=== PATIENT | female | born 1980 ===

== ENCOUNTER 2020-12-23 09:12 | Outpatient (REF) | payer OTHER, SELFPAY ==
[2020-12-23 10:10] LABS: MANUAL DIFF FLAG NO
[2020-12-23 10:26] LABS: Basophils Percent Auto 0.5 % (0-2); Eosinophils Absolute Auto 0.1 X10*3/uL (0.0-0.4); Hematocrit 37.5 % (37-47); Hemoglobin 12.3 g/dl (12.0-16.0); Imm Gran Abs Auto 0.02 X10*3/uL (0.00-0.03); Imm Gran Pct Auto 0.3 % (0.0-0.4); Lymphocytes Absolute Auto 1.8 X10*3/uL (1.2-4.9); Lymphocytes Percent Auto 29.1 % (20-40); Mean Corpuscular HGB Conc 32.8 g/dl (31.0-35.0); Mean Corpuscular Hemoglobin 28.7 pg (27.0-33.0); Mean Corpuscular Volume 87.4 fL (80-98); Mean Platelet Volume 10.8 fL (9.4-12.3); Monocytes Absolute Auto 0.5 X10*3/uL (0.1-1.2); Monocytes Percent Auto 8.2 % (2-11); Neutrophils Absolute Auto 3.7 X10*3/uL (2.0-8.3); Neutrophils Percent Auto 60.9 % (45-73); Platelet Count 252 X10*3/uL (160-400); Red Blood Count 4.29 X10*6/uL (4.20-5.50)
[2020-12-23 10:28] LABS: Prothrombin Time 11.7 SEC (10.8-13.0)
[2020-12-23 11:05] LABS: Alanine Aminotransferase 17 U/L (0-31); Albumin Level 4.1 g/dL (3.5-5.0); Alkaline Phosphatase 75 U/L (39-117); Anion Gap 16 (12-20); Aspartate Amino Transferase 18 U/L (5-31); Bilirubin Total 0.4 mg/dL (0.0-1.0); Blood Urea Nitrogen 19 mg/dL (9-16); Calcium 8.6 mg/dL (8.4-10.2); Carbon Dioxide 21 mmol/L (22-29); Chloride 108 mmol/L (96-108); Estimated Glomerular Filt Rate > 60; Glucose Random 87 mg/dL (60-115); Sodium 141 mmol/L (135-145)
[2020-12-23 11:31] LABS: Gamma Glutamyl Transpeptidase 63 U/L (7-33)
== END 2020-12-23 09:13 | disposition home or self-care (01) ==
LOC: HO.LAB 09:12
PROVIDERS: PCP Family Medicine; Visit Provider Internal Medicine Gastroenterology
DX: K76.0 Fatty (change of) liver, not elsewhere classified (principal)
CPT/HCPCS: 36415; 80053; 82977; 85025; 85610

== ENCOUNTER → 2021-01-29 10:04 | Outpatient (BNVA) | payer OTHER, SELFPAY | PROVIDERS: PCP Family Medicine; Referring Provider Family Medicine; Visit Provider Physician Assistant ==

== ENCOUNTER 2021-02-02 15:20 | Emergency (ER) | payer OTHER, SELFPAY ==
--- NOTE | 2021-02-02 | ECG_ITS ---
Test Reason : CHEST PAIN Blood Pressure : / mmHG Vent. Rate : 097 BPM Atrial Rate : 097 BPM P-R Int : 154 ms QRS Dur : 108 ms QT Int : 366 ms P-R-T Axes : 039 -08 023 degrees QTc Int : 464 ms Normal sinus rhythm Incomplete right bundle branch block Borderline ECG No previous ECGs available Referred By: Generic ED Physician Electronically Signed By:Herbert Lew
[2021-02-02 15:28] VITALS: BP 144/78; PULSE 106; RESP 18; TEMP 37; O2SAT 97; BMI 42.0
--- NOTE | 2021-02-02 16:50 | ED_ITS ---
HPI - GI Bleed General Chief complaint: GI Bleed Stated complaint: wound left buttocks Time Seen by Provider: 02/02/21 17:50 Source: patient Mode of arrival: ambulatory Limitations: no limitations History of Present Illness HPI Narrative: 40-year-old female presents with wound next to her anus and states that it is bleeding. This wound started off as a hemorrhoid and recently opened up on Friday. She does some chest pressure and palpitations because of anxiety. She does not report fevers, chills, nausea, vomiting, diarrhea, constipation, abdominal pain, abdominal distention, edema, or any other concerning symptoms. Onset (ago): day(s) Pain Consistency: constant Severity: mild Relieving factors: none Exacerbating factors: bowel movement Context: hemorrhoids Associated symptoms: denies other symptoms Treatments Prior to Arrival: OTC meds and topical ointment Related Data Home Medications Medication Instructions Recorded Confirmed Lactobacillus combo no.23 14 cell PO 01/29/21 billion cell capsule albuterol sulfate 90 mcg/actuation 0 mcg INHALATION 01/29/21 aerosol inhaler omeprazole 20 mg capsule,delayed 20 mg PO DAILY 01/29/21 release Previous Rx's Medication Instructions Recorded docusate sodium 100 mg capsule 200 mg PO BEDTIME #60 cap 01/29/21 hydrocortisone 2.5 % topical cream 1 appl TN BID PRN #30 g 01/29/21 with perineal applicator methylcellulose (laxative) 500 mg 500 mg PO BID #60 tab 01/29/21 tablet polyethylene glycol 3350 17 gram 17 g PO DAILY #30 ea 01/29/21 oral powder packet amoxicillin-pot clavulanate 1 tab PO Q12H 7 Days #14 tab 02/02/21 [Augmentin] Allergies Allergy/AdvReac Type Severity Reaction Status Date / Time No Known Allergies Allergy Verified 01/29/21 10:12 [No Known Allergies*] Review of Systems Review of Systems: Constitutional: No Fever, No Chills ENT/Mouth: No Ear Pain, No Hoarseness, No sore throat Eyes: No Eye Pain, No Swelling, No Redness, No Foreign Body Cardiovascular: No Chest Pain, No SOB Respiratory: No Cough, No Dyspnea Gastrointestinal: Positive rectal pain, positive rectal wound, No Nausea, No Vomiting, No Diarrhea, No abdominal Pain Genitourinary: No Dysuria, No Hematuria Musculoskeletal: No joint pain, No Myalgias, No Joint Swelling Skin: No Skin lacerations, No rash Neuro: No Weakness, No Numbness, No Paresthesias, No Loss of Consciousness, No Dizziness, No Headache Psych: No Anxiety/Panic, No Depression Heme/Lymph: no easy bruising, no Lymphadenopathy Endocrine: No Polyuria, No Polydipsia Yes all other systems are reviewed and are negative [facility] Past Medical History Attestation statement: The following information was validated with the patient. 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 Oriented X3. No acute distress. Eyes: Pupils equal, round and reactive to light. ENT: Pharynx normal. Neck: Normal inspection. Neck supple. CVS: Normal heart rate and rhythm. Pulses normal. Respiratory: No respiratory distress. Breath sounds normal. Abdomen: Soft and nontender. Skin: Skin warm and dry. Normal skin color. Normal skin turgor. Open wound of the 9 o'clock position of anus. Extremities: No lower extremity edema. Neuro: No motor deficit. No sensory deficit. Course Course Course Narrative: 40-year-old female presents with wound to the 9 o'clock position of the anus. States that it started off as a hemorrhoid then opened up on Friday. I did discuss this case with Dr. Maldonado, Gastroenterology, patient does not have a history of Crohn's disease and is not actively bleeding at this time. Plan is to refer to surgery. Discussion with Dr. Cosby, plan is for patient to call on Friday and follow up in the office as an outpatient. Will give Augmentin for prophylaxis. She did have a full workup with normal lab at a prior facility earlier today and was referred to emergency department for wound evaluation. At the end of the exam and upon discharge instructions, patient stated that she did have some abnormal vaginal bleeding. She stated that this is her 2nd menstrual cycle less than 1 month. Patient was advised to follow-up with obstetrics and gynecology professor. Patient verbalized understanding of and agrees to plan of care discharge home. MDM - GI Bleed MDM Narrative Medical decision making narrative: Fissure, fistula Differential Diagnosis Differential diagnosis: Likely hemorrhoids ECG Data Attestation: I personally reviewed and interpreted this ECG as follows: ECG interpretation date: 02/02/21 ECG interpretation time: 16:46 Prior ECG tracings: not available for review Interpretation: Vent. rate 97 BPM TN interval 154 ms QRS duration 108 ms QT/QTc 366/464 ms P-R-T axes 39 -8 23 Normal sinus rhythm Incomplete right bundle branch block Borderline ECG No previous ECGs available Discharge Plan Discharge Clinical Impression: Rectal fistula, Hemorrhoids Patient Disposition: Home, Self-Care Instructions: Anal Fissure (ED), Anorectal Abscess and Anal Fistula (ED) Additional Instructions: You were evaluated for a wound at the anus. This looks to be a rectal fistula. You must follow-up with surgery. Please call Dr. Cosby on Friday. He is expecting your call. Please take Augmentin twice a day for the next 7 days. For abnormal vaginal bleeding to follow-up with obstetrics and gynecology professor. Thank you for choosing this emergency department for evaluation. Please follow-up with primary care physician as needed. Return to the emergency department for any new, concerning, or worsening symptoms. Prescriptions: New amoxicillin-pot clavulanate [Augmentin] 875-125 mg tablet 1 tab PO Q12H 7 Days Qty: 14 RF: 0 No Action albuterol sulfate 90 mcg/actuation HFA aerosol inhaler 0 mcg inhalation RF: 0 omeprazole 20 mg capsule,delayed release(DR/EC) 20 mg PO DAILY RF: 0 Ronnie Probiotic 14 billion cell capsule PO RF: 0 Citrucel 500 mg tablet 500 mg PO BID Qty: 60 RF: 5 docusate sodium [Colace] 100 mg capsule 200 mg PO BEDTIME Qty: 60 RF: 5 polyethylene glycol 3350 [Miralax] 17 gram powder in packet 17 g PO DAILY Qty: 30 RF: 5 hydrocortisone [Proctozone-HC] 2.5 % cream with perineal applicator 1 appl TN BID PRN (Reason: hemorrhoids) Qty: 30 RF: 3 Referrals: Stefano Cosby MD [Physician] - 2 days (Please call on Friday for an appointment for rectal fistula) Stand Alone Forms: Work/School Release Interventions: ED Discharge Assessment Last Done: 02/02/21 18:04 Discharge Date/Time: 02/02/21 18:05
[2021-02-02 17:58] VITALS: BP 124/68; PULSE 100; RESP 16; TEMP 36.9; O2SAT 97
== END 2021-02-02 18:05 | disposition home or self-care (01) ==
PROVIDERS: Emergency Provider Internal Medicine; PCP Family Medicine
DX: K60.4 Rectal fistula (principal); K64.9 Unspecified hemorrhoids
CPT/HCPCS: 93005; 99283

== ENCOUNTER → 2021-02-15 09:41 | Outpatient (BNVA) | payer OTHER, SELFPAY | PROVIDERS: PCP Family Medicine; Referring Provider Family Medicine; Visit Provider Surgery | DX: K64.9 Unspecified hemorrhoids (principal) | CPT/HCPCS: 46600 ==

== ENCOUNTER 2021-03-05 08:51 | Outpatient (REF) | payer OTHER, SELFPAY ==
--- NOTE | ~2021-03-05 | US_ITS ---
EXAMINATION: US COMPLETE ABDOMEN WITH LIVER ELASTOGRAPHY CLINICAL INFORMATION: K76.0 - Fatty (change of) liver, not elsewhere classified. Elevated liver function tests, clinical history prior exam. COMPARISON: CT abdomen and pelvis noncontrast 11/08/2019, ultrasound right upper quadrant abdomen 11/08/2019, ultrasound abdomen 10/31/2018 TECHNIQUE: Real-time imaging of the abdominal viscera. Noninvasive ultrasound liver fibrosis assessment is performed using [place] ElastPQ point quantification shear wave elastography (pSWE) with a C5-2 MHz transducer. Multiple elastography samples are obtained. FINDINGS: PANCREAS: The visualized pancreas is normal in size and contour and echogenicity. There is no ductal dilatation or retroperitoneal effusion. The distal body and tail are obscured by bowel gas and not imaged. The body and tail are unremarkable on recent noncontrast CT abdomen. ABDOMINAL AORTA: The proximal, middle, and distal aortic segments are normal in caliber. INFERIOR VENA CAVA: Visualized portions are normal. LIVER: The liver is normal in size and smooth in contour. There is mild increased hepatic parenchymal echogenicity suggesting mild hepatic steatosis. No focal hepatic parenchymal lesion or intrahepatic ductal dilatation. The right lobe measures 14.0 cm in length. The left lobe measures 13.9 cm in length. Portal flow is towards the liver (hepatopetal). Shear wave liver elastography median stiffness is 1.93 m/s (reference: normal median stiffness is 1.3 m/s or less). IQR/median stiffness to assess sampling precision is 0.16 (reference: good quality data set is IQR/median stiffness of 0.15 or less). GALLBLADDER: Normal. The gallbladder is physiologically distended without evidence of stones, sludge, polyps, wall thickening or pericholecystic fluid. COMMON BILE DUCT: Normal in caliber measuring 0.3 cm in diameter. RIGHT KIDNEY: Normal. No hydronephrosis. No renal calculi or focal parenchymal lesions. The kidney measures 11.4 cm in maximum dimension. LEFT KIDNEY: Normal. No hydronephrosis. No renal calculi or focal parenchymal lesions. The kidney measures 10.7 cm in maximum dimension. SPLEEN: Normal. The spleen measures 9.7 cm in maximum dimension. FREE FLUID: None. US/US abdomen comp w elastography IMPRESSION: 1. Liver normal in size and smooth in contour with mild increased parenchymal echogenicity suggesting mild hepatic steatosis. No focal parenchymal lesion. 2. Liver elastography: Measurements are suggestive of compensated advanced chronic liver disease but need further test for confirmation. 3. No cholelithiasis or ductal dilatation. REFERENCE: Society of Radiologists in Ultrasound Liver Stiffness Thresholds (2020): LIVER STIFFNESS THRESHOLDS: *Liver Stiffness equal or less than 1.3 m/s: High probability of being normal. *Liver Stiffness less than 1.7 m/s: In the absence of other known clinical signs, rules out compensated advanced chronic liver disease. *Liver Stiffness 1.7-2.1 m/s: Suggestive of compensated advanced chronic liver disease but need further test for confirmation. *Liver Stiffness over 2.1 m/s: Rules in compensated advanced chronic liver disease. *Liver Stiffness over 2.4 m/s: Suggestive of clinically significant portal hypertension. QUALITY OF DATA SET: *IQR/Median value equal or less than 0.15 implies a quality data set. *IQR/Median value over 0.15 implies a poor quality data set. SIGNIFICANT CHANGE FROM PRIOR EXAM: Significant change if liver stiffness measurement is 10% or greater from prior exam. OTHER CONSIDERATIONS: The stage of liver fibrosis may be overestimated in the setting of acute hepatitis, liver inflammation, elevated liver function tests, hepatic vascular congestion, obstructive cholestasis, non-fasting state, and infiltrative diseases such as amyloidosis and lymphoma. In some patients with NAFLD, the liver stiffness thresholds for compensated advanced chronic liver disease may be lower. In causes other than viral hepatitis and NAFLD, liver stiffness thresholds are not well established.
== END 2021-03-05 08:52 | disposition home or self-care (01) ==
LOC: HO.US 08:51
PROVIDERS: PCP Family Medicine; Visit Provider Physician Assistant
DX: K76.0 Fatty (change of) liver, not elsewhere classified (principal)
CPT/HCPCS: 76705; 76981

== ENCOUNTER 2021-04-09 09:56 | Outpatient (REF) | payer OTHER, SELFPAY ==
[2021-04-09 12:36] LABS: Erythrocyte Sedimentation Rate 5 MM/HR (0-20)
[2021-04-09 14:10] LABS: C Reactive Protein 0.07 mg/dL (< or = 0.50); Cholesterol 337 mg/dL; HDL Cholesterol 54 mg/dL; Lipase 24 U/L (8-78); Triglycerides 1076 mg/dL
[2021-04-09 14:34] LABS: Thyroid Stimulating Hormone 1.26 uIU/mL (0.32-4.0)
[2021-04-09 15:27] LABS: Leukocytes Stool Qualitative NEGATIVE (NEGATIVE)
[2021-04-12 12:01] LABS: Endomysial IgA Antibody Negative (Negative)
[2021-04-12 20:36] LABS: Transglutaminase IgA <1.0 U/mL
[2021-04-13 02:17] LABS: Calprotectin, Fecal 59 mcg/g
[2021-04-16 22:40] LABS: Pancreatic Elastase-1 >500 mcg/g
== END 2021-04-09 09:57 | disposition home or self-care (01) ==
LOC: HO.LAB 09:56
PROVIDERS: PCP Family Medicine; Referring Provider Family Medicine; Visit Provider Physician Assistant
DX: K76.0 Fatty (change of) liver, not elsewhere classified (principal); K52.9 Noninfective gastroenteritis and colitis, unspecified; R11.2 Nausea with vomiting, unspecified
CPT/HCPCS: 36415; 80061; 82656; 83516; 83690; 83993; 84443; 85652; 86140; 86255; 86256; 87329; 89055

== ENCOUNTER 2021-05-20 18:51 | Emergency (ER) | payer OTHER, SELFPAY ==
--- NOTE | ~2021-05-20 | XR_ITS ---
EXAMINATION: XR CHEST CLINICAL INFORMATION: Cough COMPARISON: None TECHNIQUE: 2 views of the chest were obtained. FINDINGS: The lungs are clear with no focal consolidation. No evidence of pneumothorax, pulmonary edema, or pleural effusions. The cardiomediastinal silhouette is unremarkable. No acute osseous findings. XR/XR chest 2V IMPRESSION: No acute cardiopulmonary findings.
--- NOTE | ~2021-05-20 | CT_ITS ---
EXAMINATION: CT ABDOMEN AND PELVIS WITH CONTRAST CLINICAL INFORMATION: Abdominal pain COMPARISON: 11/08/2019 TECHNIQUE: Multidetector volumetric images were obtained from the superior aspect of the liver through the pubic symphysis following administration 85 mL of Omnipaque 350 intravenous contrast. Sagittal and coronal reformatted images were obtained on the technologist's workstation. Oral contrast: No This CT examination was performed using dose optimization techniques as appropriate, variously including the following: *Automated exposure control *Adjustment of mA and/or kV according to patient size (this includes techniques or standardized protocols for targeted exams where dose is matched to indication/reason for exam; i.e. extremities or head) *Use of iterative reconstruction technique DLP: 897 mGy-cm FINDINGS: LUNG BASES: The visualized lung bases are unremarkable. LIVER, GALLBLADDER, AND BILIARY TREE: The liver demonstrates diffuse hypoattenuation suggesting steatosis. No focal hepatic lesion or biliary ductal dilatation is present. The gallbladder is unremarkable with no evidence of radiopaque gallstones, gallbladder wall thickening, or obvious pericholecystic inflammatory changes. PANCREAS: Unremarkable. SPLEEN: Unremarkable. ADRENAL GLANDS: Unremarkable. KIDNEYS AND URETERS: The kidneys are normal in size, shape, and attenuation. No hydronephrosis, hydroureter, or obstructing calculi seen. No perinephric stranding. BLADDER: Unremarkable. GASTROINTESTINAL TRACT: No evidence of bowel obstruction. No significant bowel wall thickening is seen The appendix is unremarkable. No free fluid or free air is seen. ABDOMINAL WALL: No significant hernia is appreciated. LYMPH NODES: Normal. VASCULAR: Unremarkable. PELVIC VISCERA: Unremarkable. OSSEOUS STRUCTURES: Unremarkable. CT/CT abdomen pelvis w con IMPRESSION: No acute findings identified in the abdomen/pelvis.
[2021-05-20 21:32] VITALS: BP 157/94; PULSE 113; RESP 20; TEMP 36.8; O2SAT 98; BMI 38.9
--- NOTE | 2021-05-20 22:35 | ED.GENADULT ---
HPI - General Adult General Chief complaint: General Medical Stated complaint: tampon stuck,abd pain Time Seen by Provider: 05/20/21 22:33 Source: patient and other Mode of arrival: ambulatory History of Present Illness HPI narrative: 40-year-old female with history of asthma presents for concerns about a retained tampon since yesterday and has developed lower back pain/valeria-umbilical, intermittent, sharp abdominal pain since that time with nausea, vomiting, and diarrhea. Related Data Home Medications Medication Instructions Recorded Confirmed Lactobacillus combo no.23 14 cell PO 01/29/21 04/09/21 billion cell capsule (Ronnie Probiotic) albuterol sulfate 90 mcg/actuation 0 mcg INHALATION 01/29/21 04/09/21 aerosol inhaler omeprazole 20 mg capsule,delayed 20 mg PO DAILY 01/29/21 04/09/21 release Previous Rx's Medication Instructions Recorded hydrocortisone 2.5 % topical cream 1 appl MA BID PRN #30 g 01/29/21 with perineal applicator (Proctozone-HC) methylcellulose (laxative) 500 mg 500 mg PO BID #60 tab 01/29/21 tablet (Citrucel) polyethylene glycol 3350 17 gram 17 g PO DAILY #30 ea 01/29/21 oral powder packet (Miralax) loperamide 2 mg capsule (Imodium 2 mg PO Q6H PRN #30 cap 04/09/21 A-D) methylcellulose (laxative) 500 mg 500 mg PO BID #60 tab 04/09/21 tablet (Citrucel) ondansetron HCl 4 mg tablet 4 mg PO Q6H PRN #7 tab 05/21/21 (Zofran) Allergies Allergy/AdvReac Type Severity Reaction Status Date / Time No Known Allergies Allergy Verified 02/15/21 09:50 [No Known Allergies*] Review of Systems Review of Systems: Pertinent positives and negatives as stated in the HPI 10 point review of systems is otherwise negative. 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 GENERAL: Well developed, well nourished, in no acute distress. HEAD: Normocephalic/atraumatic, EYES: PERRLA, EOMI OROPHARYNX: no oral lesions noted, posterior pharynx clear NECK: Supple, no adenopathy LUNGS: Normal breath sounds. SpO2<98> CARDIOVASCULAR: Tachycardia rate and rhythm without noted murmurs, no JVD or lower extremity edema. ABDOMEN: Soft, lower abdominal pain without rebound, non-distended with bowel sounds. : Normal external genitalia in straits sequela of menstruation without noted foreign body and no cervix lesions SKIN: Inspection of the skin reveals no rashes NEUROLOGIC: Alert and oriented x 4. Course Course Course Narrative: 2230: 40-year-old female with history and clinical presentation suggestive of possible retained tampon, ovarian cyst rupture, appendicitis, renal colic Review of all investigations demonstrates gastroenteritis, no tampon located on pelvic exam. Patient was fluid resuscitated and although the lactic acid is noted to be elevated there is no evidence of acute infection, hypoxia. Patient is tolerating oral intake and headache has improved with Tylenol. Patient is otherwise discharged in stable condition with strict return precautions. Medical Decision Making Lab Data Result diagrams: 05/20/21 22:59 05/20/21 22:59 Labs: Lab Results 05/20/21 05/20/21 05/20/21 Range/Units 22:59 22:59 22:59 WBC 9.2 (4.8-10.8) X10*3/uL RBC 4.30 (4.20-5.50) X10*6/uL Hgb 13.1 (12.0-16.0) g/dl Hct 37.3 (37.0-47.0) % MCV 86.7 (80.0-98.0) fL MCH 30.5 (27.0-33.0) pg MCHC 35.1 H (31.0-35.0) g/dl RDW 12.8 (11.0-16.0) % Plt Count 306 (160-400) X10*3/uL MPV 10.4 (9.4-12.3) fL Immature Gran % (Auto) 0.2 (0.0-0.4) % Neut % (Auto) 75.2 H (45-73) % Lymph % (Auto) 17.5 L (20-40) % [place] % (Auto) 6.7 (2-11) % Eos % (Auto) 0.1 (0-4) % Baso % (Auto) 0.3 (0-2) % Lymph # (Auto) 1.6 (1.2-4.9) X10*3/uL [place] # (Auto) 0.6 (0.1-1.2) X10*3/uL Eos # (Auto) 0.0 (0.0-0.4) X10*3/uL Baso # (Auto) 0.0 (0.0-0.2) X10*3/uL Abs Immat Gran (auto) 0.02 (0.00-0.03) X10*3/uL Absolute Neuts (auto) 6.92 (2.0-8.3) x10*3/uL Absolute Nucleated RBC 0.000 (0.0-0.012) X10*3/uL Nucleated RBC % (auto) 0.0 (0.0-0.2) /100WBC Sodium 138 (135-145) mmol/L Potassium 3.4 (3.3-5.1) mmol/L Chloride 102 (96-108) mmol/L Carbon Dioxide 21 L (22-29) mmol/L Anion Gap 18 (12-20) BUN 12 (9-16) mg/dL Creatinine 0.83 (0.5-1.4) mg/dL Estim Creat Clear Calc 102.4 Estimated GFR > 60 Random Glucose 98 (60-115) mg/dL Lactic Acid 4.3 H* (0.5-2.0) mmol/L Lactic Acid Fup @ 2Hr (0.5-2.0) mmol/L Calcium 8.4 (8.4-10.2) mg/dL Total Bilirubin 1.1 H (0.0-1.0) mg/dL AST 33 H D (5-31) U/L ALT 30 (0-31) U/L Alkaline Phosphatase 73 (39-117) U/L Total Protein 7.0 (6.5-8.0) g/dL Albumin 4.2 (3.5-5.0) g/dL Urine Color Urine Appearance Urine pH (5.0-8.0) Ur Specific [place] (1.005-1.025) Urine Protein (NEG-TRACE) MG/DL Urine Glucose (UA) (NEG) MG/DL Urine Ketones (NEG) MG/DL Urine Blood (NEG) Urine Nitrite (NEG) Ur Leukocyte Esterase (NEG) Urine RBC (0) /HPF Urine WBC (0-4) /HPF Ur Squamous Epith Cells /LPF Urine Bacteria /LPF Urine Mucus /LPF Urine Test (NEGATIVE) COVID-19 (HECTOR) (Negative) COVID-19 Clin Com 05/21/21 05/21/21 05/21/21 Range/Units 00:07 00:07 01:57 WBC (4.8-10.8) X10*3/uL RBC (4.20-5.50) X10*6/uL Hgb (12.0-16.0) g/dl Hct (37.0-47.0) % MCV (80.0-98.0) fL MCH (27.0-33.0) pg MCHC (31.0-35.0) g/dl RDW (11.0-16.0) % Plt Count (160-400) X10*3/uL MPV (9.4-12.3) fL Immature Gran % (Auto) (0.0-0.4) % Neut % (Auto) (45-73) % Lymph % (Auto) (20-40) % [place] % (Auto) (2-11) % Eos % (Auto) (0-4) % Baso % (Auto) (0-2) % Lymph # (Auto) (1.2-4.9) X10*3/uL [place] # (Auto) (0.1-1.2) X10*3/uL Eos # (Auto) (0.0-0.4) X10*3/uL Baso # (Auto) (0.0-0.2) X10*3/uL Abs Immat Gran (auto) (0.00-0.03) X10*3/uL Absolute Neuts (auto) (2.0-8.3) x10*3/uL Absolute Nucleated RBC (0.0-0.012) X10*3/uL Nucleated RBC % (auto) (0.0-0.2) /100WBC Sodium (135-145) mmol/L Potassium (3.3-5.1) mmol/L Chloride (96-108) mmol/L Carbon Dioxide (22-29) mmol/L Anion Gap (12-20) BUN (9-16) mg/dL Creatinine (0.5-1.4) mg/dL Estim Creat Clear Calc Estimated GFR Random Glucose (60-115) mg/dL Lactic Acid 3.9 H* (0.5-2.0) mmol/L Lactic Acid Fup @ 2Hr (0.5-2.0) mmol/L Calcium (8.4-10.2) mg/dL Total Bilirubin (0.0-1.0) mg/dL AST (5-31) U/L ALT (0-31) U/L Alkaline Phosphatase (39-117) U/L Total Protein (6.5-8.0) g/dL Albumin (3.5-5.0) g/dL Urine Color YELLOW Urine Appearance HAZY Urine pH 6.0 (5.0-8.0) Ur Specific [place] >= 1.030 H (1.005-1.025) Urine Protein 1+ H (NEG-TRACE) MG/DL Urine Glucose (UA) NEG (NEG) MG/DL Urine Ketones 15 (NEG) MG/DL Urine Blood 3+ H (NEG) Urine Nitrite NEG (NEG) Ur Leukocyte Esterase NEG (NEG) Urine RBC 15-29 H (0) /HPF Urine WBC 1-4 (0-4) /HPF Ur Squamous Epith Cells 2+ /LPF Urine Bacteria 2+ /LPF Urine Mucus 2+ /LPF Urine Test NEGATIVE (NEGATIVE) COVID-19 ([facility]CTOR) (Negative) COVID-19 Clin Com 05/21/21 05/21/21 Range/Units 03:05 04:59 WBC (4.8-10.8) X10*3/uL RBC (4.20-5.50) X10*6/uL Hgb (12.0-16.0) g/dl Hct (37.0-47.0) % MCV (80.0-98.0) fL MCH (27.0-33.0) pg MCHC (31.0-35.0) g/dl RDW (11.0-16.0) % Plt Count (160-400) X10*3/uL MPV (9.4-12.3) fL Immature Gran % (Auto) (0.0-0.4) % Neut % (Auto) (45-73) % Lymph % (Auto) (20-40) % [place] % (Auto) (2-11) % Eos % (Auto) (0-4) % Baso % (Auto) (0-2) % Lymph # (Auto) (1.2-4.9) X10*3/uL [place] # (Auto) (0.1-1.2) X10*3/uL Eos # (Auto) (0.0-0.4) X10*3/uL Baso # (Auto) (0.0-0.2) X10*3/uL Abs Immat Gran (auto) (0.00-0.03) X10*3/uL Absolute Neuts (auto) (2.0-8.3) x10*3/uL Absolute Nucleated RBC (0.0-0.012) X10*3/uL Nucleated RBC % (auto) (0.0-0.2) /100WBC Sodium (135-145) mmol/L Potassium (3.3-5.1) mmol/L Chloride (96-108) mmol/L Carbon Dioxide (22-29) mmol/L Anion Gap (12-20) BUN (9-16) mg/dL Creatinine (0.5-1.4) mg/dL Estim Creat Clear Calc Estimated GFR Random Glucose (60-115) mg/dL Lactic Acid (0.5-2.0) mmol/L Lactic Acid Fup @ 2Hr 3.5 H* (0.5-2.0) mmol/L Calcium (8.4-10.2) mg/dL Total Bilirubin (0.0-1.0) mg/dL AST (5-31) U/L ALT (0-31) U/L Alkaline Phosphatase (39-117) U/L Total Protein (6.5-8.0) g/dL Albumin (3.5-5.0) g/dL Urine Color Urine Appearance Urine pH (5.0-8.0) Ur Specific [place] (1.005-1.025) Urine Protein (NEG-TRACE) MG/DL Urine Glucose (UA) (NEG) MG/DL Urine Ketones (NEG) MG/DL Urine Blood (NEG) Urine Nitrite (NEG) Ur Leukocyte Esterase (NEG) Urine RBC (0) /HPF Urine WBC (0-4) /HPF Ur Squamous Epith Cells /LPF Urine Bacteria /LPF Urine Mucus /LPF Urine Test (NEGATIVE) COVID-19 ([facility]CTOR) Negative (Negative) COVID-19 Clin Com See Note Discharge Plan Discharge Clinical Impression: Gastroenteritis, Dehydration Patient Disposition: Home, Self-Care Instructions: Dehydration (ED), Gastroenteritis (ED) Additional Instructions: 1. Continue to drink plenty of water and eat a bland diet. 2. Follow-up with your primary care provider for re-evaluation and further outpatient management. Return to the ER for worsening of symptoms. Prescriptions: New ondansetron HCl [Zofran] 4 mg tablet 4 mg PO Q6H PRN (Reason: nausea and vomiting) Qty: 7 RF: 0 No Action albuterol sulfate 90 mcg/actuation HFA aerosol inhaler 0 mcg inhalation RF: 0 omeprazole 20 mg capsule,delayed release(DR/EC) 20 mg PO DAILY RF: 0 Ronnie Probiotic 14 billion cell capsule PO RF: 0 Citrucel 500 mg tablet 500 mg PO BID Qty: 60 RF: 5 polyethylene glycol 3350 [Miralax] 17 gram powder in packet 17 g PO DAILY Qty: 30 RF: 5 hydrocortisone [Proctozone-HC] 2.5 % cream with perineal applicator 1 appl MA BID PRN (Reason: hemorrhoids) Qty: 30 RF: 3 Citrucel 500 mg tablet 500 mg PO BID Qty: 60 RF: 5 loperamide [Imodium A-D] 2 mg capsule 2 mg PO Q6H PRN (Reason: loose stool) Qty: 30 RF: 0 Referrals: Tacho Juares MD [Primary Care Provider] - 2 days
[2021-05-20] MEDS: 0.9 % Sodium Chloride 1,000 ML 999 ML IV (23:01)
[2021-05-20 23:08] LABS: Basophils Percent Auto 0.3 % (0-2); Eosinophils Percent Auto 0.1 % (0-4); Hematocrit 37.3 % (37.0-47.0); Hemoglobin 13.1 g/dl (12.0-16.0); Imm Gran Abs Auto 0.02 X10*3/uL (0.00-0.03); Imm Gran Pct Auto 0.2 % (0.0-0.4); Lymphocytes Absolute Auto 1.6 X10*3/uL (1.2-4.9); Lymphocytes Percent Auto 17.5 % (20-40); MANUAL DIFF FLAG NO; Mean Corpuscular HGB Conc 35.1 g/dl (31.0-35.0); Mean Corpuscular Hemoglobin 30.5 pg (27.0-33.0); Mean Corpuscular Volume 86.7 fL (80.0-98.0); Mean Platelet Volume 10.4 fL (9.4-12.3); Monocytes Absolute Auto 0.6 X10*3/uL (0.1-1.2); Monocytes Percent Auto 6.7 % (2-11); Neutrophils Absolute Auto 6.92 x10*3/uL (2.0-8.3); Neutrophils Percent Auto 75.2 % (45-73); Platelet Count 306 X10*3/uL (160-400); Red Cell Distribution Width 12.8 % (11.0-16.0); White Blood Count 9.2 X10*3/uL (4.8-10.8)
[2021-05-20 23:21] VITALS: BP 121/96; PULSE 102; RESP 20; TEMP 37.4; O2SAT 99
[2021-05-20 23:21] LABS: Alanine Aminotransferase 30 U/L (0-31); Albumin Level 4.2 g/dL (3.5-5.0); Alkaline Phosphatase 73 U/L (39-117); Anion Gap 18 (12-20); Aspartate Amino Transferase 33 U/L (5-31); Bilirubin Total 1.1 mg/dL (0.0-1.0); Blood Urea Nitrogen 12 mg/dL (9-16); Calcium 8.4 mg/dL (8.4-10.2); Carbon Dioxide 21 mmol/L (22-29); Chloride 102 mmol/L (96-108); Creatinine Clr Calc Pharmacy 102.4; Estimated Glomerular Filt Rate > 60; Glucose Random 98 mg/dL (60-115); Potassium 3.4 mmol/L (3.3-5.1); Sodium 138 mmol/L (135-145)
[2021-05-20 23:24] LABS: Lactic Acid 4.3 mmol/L (0.5-2.0)
[2021-05-21] VITALS (9 sets, daily range): BP systolic 118–134; BP diastolic 70–81; PULSE 93–104; RESP 16–18; TEMP 37.2; O2SAT 99–100
[2021-05-21 00:15] LABS: Color Urine YELLOW; Glucose Urine UA NEG (NEG); Leukocyte Esterase Urine NEG (NEG); Nitrite Urine NEG (NEG); Specific Gravity - Urine >= 1.030 (1.005-1.025); UACC Culture Trigger NO; Urine Blood 3+ (NEG); Urine Ketones 15 MG/DL (NEG); Urine Protein 1+ MG/DL (NEG-TRACE)
[2021-05-21 00:17] LABS: Appearance Urine HAZY; UPreg QC Valid YES; Urine Pregnancy NEGATIVE (NEGATIVE)
[2021-05-21 00:25] LABS: Bacteria Urine 2+ /LPF; Mucus Urine 2+ /LPF; Squamous Epithelial Cell Urine 2+ /LPF
[2021-05-21] MEDS: iohexoL 350 MG/ML 100 ML INFUS..BTL 85 ML IV (01:02)
[2021-05-21 01:06] LABS: Reflex Lactate? Lactic Acid Added
[2021-05-21 02:19] LABS: Lactic Acid 3.9 mmol/L (0.5-2.0)
[2021-05-21] MEDS: Acetaminophen 325 MG TABLET 975 MG PO (02:27)
[2021-05-21 03:32] LABS: COVID-19 Test Negative (Negative)
[2021-05-21] MEDS: 0.9 % Sodium Chloride 1,000 ML 999 ML IV (03:54)
[2021-05-21 04:03] LABS: Reflex Lactate? Lactic Acid Added
[2021-05-21 05:23] LABS: ~Lactic Acid-LAB USE ONLY 3.5 mmol/L (0.5-2.0)
[2021-05-21 07:09] LABS: Reflex Lactate? 2 Y
== END 2021-05-21 05:53 | disposition home or self-care (01) ==
PROVIDERS: Emergency Provider Student in an Organized Health Care Education/Training Program; PCP Family Medicine
DX: K52.9 Noninfective gastroenteritis and colitis, unspecified (principal); E86.0 Dehydration; R11.2 Nausea with vomiting, unspecified; R10.33 Periumbilical pain; Z20.822 Contact with and (suspected) exposure to COVID-19
CPT/HCPCS: 36415; 71046; 74177; 80053; 81001; 81025; 83605; 85025; 87040; 87635; 96360; 96361; 99284; 99285; Q9967

== ENCOUNTER 2023-01-14 15:59 | Emergency (ER) | payer OTHER, SELFPAY ==
--- NOTE | ~2023-01-14 | XR_ITS ---
EXAMINATION: XR CHEST CLINICAL INFORMATION: Chest pain COMPARISON: Chest x-ray 05/21/2021 TECHNIQUE: 2 views of the chest were obtained. FINDINGS: No significant abnormality is noted involving the heart, lungs, mediastinum, bony thorax or soft tissues. XR/XR chest 2V IMPRESSION: Unremarkable examination.
[2023-01-14 16:02] VITALS: BP 144/78; PULSE 96; RESP 16; TEMP 36.2; O2SAT 97; BMI 43.0
--- NOTE | 2023-01-14 16:02 | ED_ITS ---
HPI - General Adult General Chief complaint: Chest Pain Stated complaint: Diff breathing Time Seen by Provider: 01/14/23 18:32 Source: patient Mode of arrival: ambulatory Limitations: no limitations History of Present Illness HPI narrative: 42 yo female with history of asthma, fatty liver, hemorrhoids, obesity who presents to the ER for evaluation of right sided chest and back pain that started this morning when she was exercising. She states she was lifting weights above her head when she developed pain in the right side of her chest and back. It has been constant since, worse with movement and deep inspiration. She took muscle relaxer and aleve with minimal relief. She denies SOB, radiation of the pain, abdominal pain, dizziness, nausea, diaphoresis, leg swelling. No cardiac history. MD complaint: right sided chest and back pain Onset (ago): hour(s) Location: chest and back Radiation: non-radiation Severity: moderate Severity scale (1-10): 5 Quality: stabbing and aching Pain Consistency: constant Relieving factors: rest Exacerbating factors: movement Associated symptoms: denies other symptoms Treatments prior to arrival: NSAID Related Data Home Medications Medication Instructions Recorded Confirmed Lactobacillus combo no.23 14 cell PO 01/29/21 04/09/21 billion cell capsule (Ronnie Probiotic) albuterol sulfate 90 mcg/actuation 0 mcg inhalation 01/29/21 04/09/21 aerosol inhaler omeprazole 20 mg capsule,delayed 20 mg PO DAILY 01/29/21 04/09/21 release Previous Rx's Medication Instructions Recorded hydrocortisone 2.5 % topical cream 1 appl [place] BID PRN hemorrhoids #30 01/29/21 with perineal applicator grams (Proctozone-HC) methylcellulose (laxative) 500 mg 500 mg PO BID #60 tabs 01/29/21 tablet (Citrucel) polyethylene glycol 3350 17 gram 17 g PO DAILY #30 ea 01/29/21 oral powder packet (Miralax) loperamide 2 mg capsule (Imodium 2 mg PO Q6H PRN loose stool #30 04/09/21 A-D) caps methylcellulose (laxative) 500 mg 500 mg PO BID #60 tabs 04/09/21 tablet (Citrucel) ondansetron HCl 4 mg tablet 4 mg PO Q6H PRN nausea and 05/21/21 (Zofran) vomiting #7 tabs lidocaine 5 % topical patch 1 patch topical DAILY #15 ea 01/14/23 naproxen 500 mg tablet 500 mg PO BID PRN pain #20 tabs 01/14/23 Allergies Allergy/AdvReac Type Severity Reaction Status Date / Time No Known Allergies Allergy Verified 01/14/23 16:02 [No Known Allergies*] Review of Systems Review of Systems: Yes all other systems are reviewed and are negative [facility] Past Medical History Medical History Asthma Nausea & vomiting Surgical History No pertinent past surgical history Family History Family History Mother Cirrhosis of liver Social History Social History Household Members: Significant Other Alcohol intake: never Patient Tobacco Use Status: Never used Tobacco Smoked in Last 30 Days: No Use of substances other than those prescribed or required for medical reasons: Yes Substance Use Type: Marijuana Advance Directives: No Advance Directives Information Provided: No Current occupational status: employed 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 Oriented X3. No acute distress. Head: normocephalic, atraumatic. Eyes: Pupils equal, round and reactive to light. ENT: Pharynx normal. No tonsillar swelling or exudate. Neck: Normal inspection. Neck supple. CVS: Normal heart rate and rhythm. Pulses normal. Respiratory: No respiratory distress. Breath sounds normal. Tenderness of the right anterior chest between ribs ~8-9 as well as medial to her scapula posteriorly Abdomen: Soft and nontender. +BS x4 Skin: Skin warm and dry. Normal skin color. Normal skin turgor. No rashes. Extremities: No lower extremity edema. No joint swelling. No calf tenderness Neuro/psych: Oriented X 3. No motor deficit. No sensory deficit. CN II-XII intact. Normal speech and cognition. Course Course Course Narrative: This is an RME: Additional HPI, ROS, PE not included below will be deferred to primary provider. Patient is a 42-year-old with history of asthma presenting to the emergency department with complaint of chest pain radiating through to back since this morning. Symptoms began while lifting weights this morning (curls). Pain increased with deep inspiration. Reports chronic cough, nothing new. Denies fevers. Denies nausea or vomiting. Took Aleve and a muscle relaxer this morning with little relief. Worse with leaning forward, laying flat. Plan: EKG, labs, CXR Medical Decision Making Medical Decision Making [facility] Narrative: 42 yo female presenting to the ER for evaluation of acute onset right sided chest and back pain that started this morning while working out. Mild tachycardia 96 on arrival w/ BP 140s. Afebrile and saturating well. Lungs are clear on exam. Her chest x-ray was normal. EKG with no ischemic changes and troponin was negative. Pain >6 hours so no need to repeat. She has tenderness anteriorly and posteriorly on the right side. This is most consistent with muscular pain or costochondritis. PERC negative, doubt PE or dissection. At this time patient is stable for d/c home with pain control, rest and outpatient follow up. return precautions discussed. Differential Diagnosis Differential Diagnoses: The differential diagnosis associated with the presentation includes ACS, PE, costochondritis, pericarditis, myocarditis, muscle strain, doubt dissection Lab Data [facility] Lab Attestation statement: I reviewed the patient's lab results. mild leukocytosis, troponin negative 01/14/23 16:43 01/14/23 16:43 Labs: Lab Results 01/14/23 01/14/23 01/14/23 Range/Units 16:43 16:43 16:43 WBC 11.3 H (4.8-10.8) X10*3/uL RBC 4.42 (4.20-5.50) X10*6/uL Hgb 12.5 (12.0-16.0) g/dl Hct 37.3 (37.0-47.0) % MCV 84.4 (80.0-98.0) fL MCH 28.3 (27.0-33.0) pg MCHC 33.5 (31.0-35.0) g/dl RDW 13.2 (11.0-16.0) % Plt Count 237 (160-400) X10*3/uL MPV 11.2 (9.4-12.3) fL Immature Gran % (Auto) 0.3 (0.0-0.4) % Neut % (Auto) 70.2 (45-73) % Lymph % (Auto) 22.6 (20-40) % Powell % (Auto) 6.3 (2-11) % Eos % (Auto) 0.3 (0-4) % Baso % (Auto) 0.3 (0-2) % Lymph # (Auto) 2.6 (1.2-4.9) X10*3/uL Powell # (Auto) 0.7 (0.1-1.2) X10*3/uL Eos # (Auto) 0.0 (0.0-0.4) X10*3/uL Baso # (Auto) 0.0 (0.0-0.2) X10*3/uL Abs Immat Gran (auto) 0.03 (0.00-0.03) X10*3/uL Absolute Neuts (auto) 8.0 (2.0-8.3) x10*3/uL Absolute Nucleated RBC 0.000 (0.0-0.012) X10*3/uL Nucleated RBC % (auto) 0.0 (0.0-0.2) /100WBC PT 11.6 (10.0-13.1) SEC INR 1.0 (0.9-1.1) Sodium 138 (135-145) mmol/L Potassium 4.0 (3.3-5.1) mmol/L Chloride 107 (96-108) mmol/L Carbon Dioxide 23 (22-29) mmol/L Anion Gap 12 (12-20) BUN 15 (9-16) mg/dL Creatinine 1.16 (0.5-1.4) mg/dL Estim Creat Clear Calc 76.0 Estimated GFR 51 Random Glucose 88 (60-115) mg/dL Calcium 9.5 D (8.4-10.2) mg/dL Total Bilirubin 0.4 (0.0-1.0) mg/dL AST 11 (5-31) U/L ALT 12 (0-31) U/L Alkaline Phosphatase 51 (39-117) U/L Troponin I High Sens (<3.5-17.0) ng/L Total Protein 7.2 (6.5-8.0) g/dL Albumin 4.1 (3.5-5.0) g/dL Beta HCG, Quant mIU/mL 01/14/23 01/14/23 Range/Units 16:43 16:43 WBC (4.8-10.8) X10*3/uL RBC (4.20-5.50) X10*6/uL Hgb (12.0-16.0) g/dl Hct (37.0-47.0) % MCV (80.0-98.0) fL MCH (27.0-33.0) pg MCHC (31.0-35.0) g/dl RDW (11.0-16.0) % Plt Count (160-400) X10*3/uL MPV (9.4-12.3) fL Immature Gran % (Auto) (0.0-0.4) % Neut % (Auto) (45-73) % Lymph % (Auto) (20-40) % Powell % (Auto) (2-11) % Eos % (Auto) (0-4) % Baso % (Auto) (0-2) % Lymph # (Auto) (1.2-4.9) X10*3/uL Powell # (Auto) (0.1-1.2) X10*3/uL Eos # (Auto) (0.0-0.4) X10*3/uL Baso # (Auto) (0.0-0.2) X10*3/uL Abs Immat Gran (auto) (0.00-0.03) X10*3/uL Absolute Neuts (auto) (2.0-8.3) x10*3/uL Absolute Nucleated RBC (0.0-0.012) X10*3/uL Nucleated RBC % (auto) (0.0-0.2) /100WBC PT (10.0-13.1) SEC INR (0.9-1.1) Sodium (135-145) mmol/L Potassium (3.3-5.1) mmol/L Chloride (96-108) mmol/L Carbon Dioxide (22-29) mmol/L Anion Gap (12-20) BUN (9-16) mg/dL Creatinine (0.5-1.4) mg/dL Estim Creat Clear Calc Estimated GFR Random Glucose (60-115) mg/dL Calcium (8.4-10.2) mg/dL Total Bilirubin (0.0-1.0) mg/dL AST (5-31) U/L ALT (0-31) U/L Alkaline Phosphatase (39-117) U/L Troponin I High Sens < 2.7 (<3.5-17.0) ng/L Total Protein (6.5-8.0) g/dL Albumin (3.5-5.0) g/dL Beta HCG, Quant < 2 mIU/mL Independent Interpretation I performed an independent interpretation of an: EKG and Plain X-Ray Interpretation: cxr is normal, no infiltrate, agree w/ radiology read ekg w/ normal sinus rhythm, hr 82 bpm, normal pr interval, t-wave inversions in III, V1 which are old from prior Radiology Impression Discussion of test interpretation with radiology: I have reviewed the radiologist's reading. Radiologist Impression: XR/XR chest 2V IMPRESSION: Unremarkable examination. External Record Review External record reviewed: Office record, Outpatient record, Prior outpatient labs and Prior outpatient radiology Tests considered The following testing was considered but not selected: CTA considered to r/o PE but PERC negative Prescription Management I considered prescription management with: Pain Medication Scores Heart Score History: -0- slightly suspicious ECG: -0- normal Age: -0- < or = 45 Risk factory: -1- 1 or 2 risk factors Troponin: -0- < or = normal limit Score: 1 Risk: 1.7% Critical Care Time Critical Care Time Critical Care Time: No Discharge Plan Discharge Clinical Impression: Acute costochondritis Patient Disposition: Home, Self-Care Instructions: Costochondritis (ED) Additional Instructions: Your pain is most likely muscular. Your x-ray was normal Your EKG and cardiac workup today were unremarkable. Take the prescribed anti-inflammatory medication as needed for pain. Rest. No strenuous activity. Also recommend tylenol 975 mg every 8 hours around the clock. Follow up with your primary care doctor. If you develop new or worsening symptoms call 911 or come back to the ER for further evaluation. Prescriptions: New lidocaine 5 % adhesive patch,medicated 1 patch topical DAILY Qty: 15 0RF Rx Instructions: leave on most painful area for up to 12 hrs naproxen 500 mg tablet 500 mg PO BID PRN (Reason: pain) Qty: 20 0RF No Action ondansetron HCl [Zofran] 4 mg tablet 4 mg PO Q6H PRN (Reason: nausea and vomiting) Qty: 7 0RF albuterol sulfate 90 mcg/actuation HFA aerosol inhaler 0 mcg inhalation omeprazole 20 mg capsule,delayed release(DR/EC) 20 mg PO DAILY Ronnie Probiotic 14 billion cell capsule PO Citrucel 500 mg tablet 500 mg PO BID Qty: 60 5RF polyethylene glycol 3350 [Miralax] 17 gram powder in packet 17 g PO DAILY Qty: 30 5RF hydrocortisone [Proctozone-HC] 2.5 % cream with perineal applicator 1 appl [place] BID PRN (Reason: hemorrhoids) Qty: 30 3RF Rx Instructions: apply OH BID prn Citrucel 500 mg tablet 500 mg PO BID Qty: 60 5RF loperamide [Imodium A-D] 2 mg capsule 2 mg PO Q6H PRN (Reason: loose stool) Qty: 30 0RF Rx Instructions: Take 2 cap after 1st loose stool- One caplet after each subsequent loose stools No more than 4 caps in a 24 hour. Referrals: Tacho Juares MD [Primary Care Provider] - Interventions: ED Discharge Assessment Last Done: 01/14/23 19:09 Discharge Date/Time: 01/14/23 19:09
--- NOTE | 2023-01-14 16:04 | ECG_ITS ---
Test Reason : sob Blood Pressure : / mmHG Vent. Rate : 082 BPM Atrial Rate : 082 BPM P-R Int : 154 ms QRS Dur : 092 ms QT Int : 364 ms P-R-T Axes : 043 -08 021 degrees QTc Int : 425 ms Normal sinus rhythm Low voltage QRS Cannot rule out Anterior infarct , age undetermined Abnormal ECG When compared with ECG of 02-FEB-2021 16:46, No significant change was found Referred By: Trish Kramer Electronically Signed By:Herbert Lew
--- NOTE | 2023-01-14 16:46 | MHC.EDTECH ---
PATIENT EKG DONE AND WAS READ BY PROVIDER ,BLOOD DRAWN AND SENT TO LAB .
[2023-01-14 16:48] LABS: MANUAL DIFF FLAG NO
[2023-01-14 16:50] LABS: Basophils Percent Auto 0.3 % (0-2); Eosinophils Percent Auto 0.3 % (0-4); Hematocrit 37.3 % (37.0-47.0); Hemoglobin 12.5 g/dl (12.0-16.0); Imm Gran Abs Auto 0.03 X10*3/uL (0.00-0.03); Imm Gran Pct Auto 0.3 % (0.0-0.4); Lymphocytes Absolute Auto 2.6 X10*3/uL (1.2-4.9); Lymphocytes Percent Auto 22.6 % (20-40); Mean Corpuscular HGB Conc 33.5 g/dl (31.0-35.0); Mean Corpuscular Hemoglobin 28.3 pg (27.0-33.0); Mean Corpuscular Volume 84.4 fL (80.0-98.0); Mean Platelet Volume 11.2 fL (9.4-12.3); Monocytes Absolute Auto 0.7 X10*3/uL (0.1-1.2); Monocytes Percent Auto 6.3 % (2-11); Neutrophils Percent Auto 70.2 % (45-73); Platelet Count 237 X10*3/uL (160-400); Red Blood Count 4.42 X10*6/uL (4.20-5.50); Red Cell Distribution Width 13.2 % (11.0-16.0); White Blood Count 11.3 X10*3/uL (4.8-10.8)
[2023-01-14 16:58] LABS: Prothrombin Time 11.6 SEC (10.0-13.1)
[2023-01-14 17:07] LABS: Alanine Aminotransferase 12 U/L (0-31); Albumin Level 4.1 g/dL (3.5-5.0); Alkaline Phosphatase 51 U/L (39-117); Anion Gap 12 (12-20); Aspartate Amino Transferase 11 U/L (5-31); Bilirubin Total 0.4 mg/dL (0.0-1.0); Blood Urea Nitrogen 15 mg/dL (9-16); Calcium 9.5 mg/dL (8.4-10.2); Carbon Dioxide 23 mmol/L (22-29); Chloride 107 mmol/L (96-108); Estimated Glomerular Filt Rate 51; Glucose Random 88 mg/dL (60-115); Sodium 138 mmol/L (135-145); Total Protein 7.2 g/dL (6.5-8.0)
[2023-01-14 17:32] LABS: HCG Quantitative < 2 mIU/mL; Troponin-I High Sensitivity < 2.7 ng/L (<3.5-17.0)
== END 2023-01-14 19:09 | disposition home or self-care (01) ==
PROVIDERS: Registered Nurse Emergency; Emergency Provider Emergency Medicine; PCP Family Medicine
DX: M94.0 Chondrocostal junction syndrome [Tietze] (principal); R07.89 Other chest pain; R06.02 Shortness of breath; Z79.899 Other long term (current) drug therapy
CPT/HCPCS: 36415; 71046; 80053; 84484; 84702; 85025; 85610; 93005; 99283; 99284